=== PATIENT | male | born 2000 | race African-American/Black ===

== ENCOUNTER 2024-07-27 23:47 | Emergency (ER) | payer OTHER, MEDICAID ==
[~2024-07-27] VITALS: Ht 165.1 cm; Wt 69.0 kg
[2024-07-27 23:49] VITALS: BP 140/95; PULSE 128; RESP 18; TEMP 97; O2SAT 98
== END 2024-07-28 01:45 | disposition home or self-care (01) ==
LOC: ER 23:47
DX: R00.2 Palpitations (principal); F15.10 Other stimulant abuse, uncomplicated; R06.02 Shortness of breath
CPT/HCPCS: 71045; 93005; 99283